=== PATIENT | female | born 1980 | race Caucasian/White ===

== ENCOUNTER → 2016-12-16 | Outpatient (CLI) | payer BC ==
--- NOTE | 2016-12-19 14:11 | MR ---
EXAM DATE: 12/16/16 PATIENT'S AGE: 36 Patient: GUMARO HERNANDEZ Facility: [place], [place] Site Site : [id number] Study: MRI Extremity Left Knee wo Aubrey [id number]/1/2017 10:48:38 AM Ordering Physician: ZAIN ROSALES MD Final Report: HISTORY: Knee pain. Technique: Routine knee protocol. Findings: Medial compartment: Medial meniscus: The medial meniscus is intact and unremarkable. Articular cartilage: The articular cartilage surfaces are smooth and normally maintained. Lateral compartment: Lateral meniscus: The lateral meniscus is intact and unremarkable. Articular cartilage: The articular cartilage surfaces are smooth normally maintained. Patellofemoral compartment: There is evidence for recent lateral patellar dislocation. There is an osteochondral fracture of the medial facet with a separate osteochondral fragment present as previously noted on plain film study of 12/13/2016. This measures approximately 6 mm in greatest dimension. There is an impaction osteochondral injury along the anterolateral aspect of the lateral femoral condyle with underlying marrow edema. The lateral facets articular cartilage appears normally maintained. There is a mildly hypoplastic appearance to the trochlear sulcus. Ligaments: The anterior cruciate, posterior cruciate, medial collateral and lateral collateral ligaments are intact. Extensor mechanism: The quadriceps and patellar tendons are intact. 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 In the extended nonweightbearing position there is mild lateral tilting and subluxation of the patella. There is tearing of the medial patellar retinaculum along the femoral origin. Bones and soft tissues: There is no evidence for fracture elsewhere. There is a more moderate knee joint effusion present with soft tissue edema present along the medial joint line. Impression: Evidence for recent lateral patellar dislocation with osteochondral fracture of the medial facet resulting in a separate, minimally displaced 6 mm osteochondral fragment. 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 Dictated by Vic Luevano MD @ Dec 19 2016 10:52AM (Electronic Signature) Report Signed by Proxy. ROBERT
== END | disposition home or self-care (01) ==
LOC: MW.MRI 08:12
PROVIDERS: ATTEND Orthopaedic Surgery
DX: M25.562 Pain in left knee (principal); S82.012A Displaced osteochondral fracture of left patella, initial encounter for closed fracture
CPT/HCPCS: 73721-26-LT; 73721-LT

== ENCOUNTER 2019-03-29 10:50 | Inpatient (IN) | payer BC ==
[2019-03-29] MEDS ORDERED: Water For Irrigation,Sterile 1,000 ML Container IRR PRN (12:47)
[2019-03-29] MEDS ORDERED: Sodium Chloride 0.9% 10 ML SDV IV PRN (12:47)
[2019-03-29] MEDS ORDERED: Carboprost Tromethamine 250 MCG/1 ML Amp IM PRN (12:47)
[2019-03-29] MEDS ORDERED: Tranexamic Acid 1,000 MG in Sodium Chloride 0.9% 100 ML IV PRN (12:47)
[2019-03-29] MEDS ORDERED: Sodium Chloride 0.9% 10 ML Syringe FLUSH PRN (12:47)
[2019-03-29] MEDS ORDERED: Lidocaine 1% 50 ML MDV INJECT PRN (12:47)
[2019-03-29] MEDS ORDERED: Sodium Chloride 0.9% 2.5 ML Syringe FLUSH PRN (12:47)
[2019-03-29] MEDS ORDERED: Butorphanol 1 MG/ML SDV IVPUSH PRN (12:47)
[2019-03-29] MEDS ORDERED: Misoprostol 200 MCG Tab PO PRN (12:47)
[2019-03-29] MEDS ORDERED: Ampicillin 2 GM in Sodium Chloride 0.9% 100 ML IV ONE (12:47)
[2019-03-29] MEDS ORDERED: Methylergonovine 0.2 MG/1 ML Amp IM PRN (12:47)
[2019-03-29] MEDS ORDERED: Oxytocin/0.9 % Sodium Chloride 30 UNIT/500 ML BAG IV SCH (13:00)
[2019-03-29] MEDS ORDERED: Misoprostol 50 MCG (1/2 of 100 MCG) Tab VAG SCH (13:00)
[2019-03-29] MEDS: Lactated Ringers 1,000 ML IV SCH (14:14)
[2019-03-29] MEDS: Misoprostol 25 MCG (1/4 of 100 MCG) Tab ONE ×2 (14:37→18:42)
[2019-03-29] MEDS: Ampicillin 1 GM in Sodium Chloride 0.9% 50 ML IV SCH ×2 (18:06→23:01)
[2019-03-29] MEDS ORDERED: Misoprostol 25 MCG (1/4 of 100 MCG) Tab ONE ×2 (18:33→23:17)
[2019-03-30] MEDS: Lactated Ringers 1,000 ML IV SCH (02:26)
[2019-03-30] MEDS ORDERED: Misoprostol 25 MCG (1/4 of 100 MCG) Tab ONE (03:37)
[2019-03-30] MEDS: Ampicillin 1 GM in Sodium Chloride 0.9% 50 ML IV SCH ×2 (03:46→08:10)
[2019-03-30] MEDS ORDERED: fentaNYL 100 MCG/2 ML SDV ONE (05:56)
[2019-03-30] MEDS ORDERED: ePHEDrine 50 MG/ML SDV ONE (06:16)
--- NOTE | 2019-03-30 06:28 | PCM.PREANE ---
Preanesthetic Assessment - Anesthesia/Transfusion/Family Hx Anesthesia History: Prior Anesthesia Without Reaction Family History of Anesthesia Reaction: No Transfusion History: No Prior Transfusion(s) Intubation History: Unknown - Review of Systems General: No Symptoms Pulmonary: No Symptoms Cardiovascular: No Symptoms Gastrointestinal: Abdominal Pain (labor pain) Neurological: No Symptoms Other: Reports: None - Physical Assessment Height: 5 ft 9 in Weight: 130.181 kg ASA Class: 2 Mental Status: Alert & Oriented x3 Airway Class: Mallampati = 2 Dentition: Reports: Normal Dentition Thyro-Mental Finger Breadths: 3 Mouth Opening Finger Breadths: 3 ROM/Head Extension: Full Lungs: Clear to Auscultation, Normal Respiratory Effort - Lab Values: Laboratory Last Values WBC 7.76 K/uL (4.0-11.0) 03/29/19 13:00 RBC 4.08 M/uL (4.30-5.90) L 03/29/19 13:00 Hgb 11.8 g/dL (12.0-16.0) L 03/29/19 13:00 Hct 35.7 % (36.0-46.0) L 03/29/19 13:00 MCV 87.5 fL (80.0-98.0) 03/29/19 13:00 MCH 28.9 pg (27.0-32.0) 03/29/19 13:00 MCHC 33.1 g/dL (31.0-37.0) 03/29/19 13:00 RDW Std Deviation 46.7 fl (28.0-62.0) 03/29/19 13:00 RDW Coeff of Kay 15 % (11.0-15.0) 03/29/19 13:00 Plt Count 190 K/uL (150-400) 03/29/19 13:00 MPV 11.60 fL (7.40-12.00) 03/29/19 13:00 Nucleated RBC % 0.0 /100WBC 03/29/19 13:00 Nucleated RBCs # 0 K/uL 03/29/19 13:00 Blood Type B POSITIVE 03/29/19 13:00 Antibody Screen NEGATIVE 03/29/19 13:00 - Allergies Allergies/Adverse Reactions: Allergies Allergy/AdvReac Type Severity Reaction Status Date / Time codeine Allergy Hives Verified 03/29/19 15:40 - Blood Blood Available: No - Anesthesia Plan Pre-Op Medication Ordered: None - Acknowledgements Anesthesia Type Planned: Epidural Pt an Appropriate Candidate for the Planned Anesthesia: Yes Alternatives and Risks of Anesthesia Discussed w Pt/Guardian: Yes Pt/Guardian Understands and Agrees with Anesthesia Plan: Yes PreAnesthesia Questionnaire - Past Health History Medical/Surgical History: Denies Medical/Surgical History HEENT History: Reports: None Cardiovascular History: Reports: None Respiratory History: Reports: None Gastrointestinal History: Reports: GERD Genitourinary History: Reports: None 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: Musculoskeletal History: Reports: None Neurological History: Reports: None Psychiatric History: Reports: None Endocrine/Metabolic History: Reports: Diabetes, Gestational, Obesity/BMI 30+ Hematologic History: Reports: None Immunologic History: Reports: None Oncologic (Cancer) History: Reports: None Dermatologic History: Reports: None - Infectious Disease History Infectious Disease History: Reports: Chicken Pox - Past Surgical History Endocrine Surgical History: Reports: None Musculoskeletal Surgical History: Reports: Other (See Below) Other Musculoskeletal Surgeries/Procedures:: Surgical repair of patella and "tightened the joint" via the hamstring. - SUBSTANCE USE Smoking Status *Q: Never Smoker Tobacco Use Within Last Twelve Months: No Second Hand Smoke Exposure: No Recreational Drug Use History: No - HOME MEDS Home Medications: Home Meds PNV95/Ferrous Fumarate/FA [ Vitamin Tablet] 1 each PO DAILY 03/29/19 [ History] - CURRENT (IN HOUSE) MEDS Current Meds: Current Medications Butorphanol Tartrate (Stadol) 1 mg IVPUSH Q1H PRN PRN Reason: Pain Carboprost Tromethamine (Hemabate Ds) 250 mcg IM ASDIRECTED PRN PRN Reason: Post Hemorrhage Ampicillin Sodium 1 gm/ Sodium (Chloride) 50 mls @ 100 mls/hr IV Q4H [facility] Last Admin: 03/30/19 03:46 Dose: 100 mls/hr Lactated Ringer's (Ringers, Lactated) 1,000 mls @ 150 mls/hr IV ASDIRECTED [facility] Last Admin: 03/30/19 02:26 Dose: 150 mls/hr Oxytocin/Sodium Chloride (Oxytocin 30 Unit/500 Ml-Ns) 30 unit in 500 mls @ 999 mls/hr IV TITRATE [facility] Tranexamic Acid 1,000 mg/ (Sodium Chloride) 110 mls @ 660 mls/hr IV ONETIME PRN PRN Reason: Bleeding Lidocaine HCl (Xylocaine 1%) 50 ml INJECT ONETIME PRN PRN Reason: Laceration repair Methylergonovine Maleate (Methergine) 0.2 mg IM ASDIRECTED PRN PRN Reason: Post Hemorrhage Misoprostol (Cytotec) 200 mcg PO ONETIME PRN PRN Reason: Post Hemorrhage Misoprostol (Cytotec) 25 mcg VAG Q4H [facility] Last Admin: 03/29/19 23:39 Dose: 25 mcg Sodium Chloride (Saline Flush) 10 ml FLUSH ASDIRECTED PRN PRN Reason: Keep Vein Open Sodium Chloride (Saline Flush) 2.5 ml FLUSH ASDIRECTED PRN PRN Reason: Keep Vein Open Sodium Chloride (Normal Saline) 10 ml IV ASDIRECTED PRN PRN Reason: IV Use Sterile Water (Sterile Water For Irrigation) 1,000 ml IRR ASDIRECTED PRN PRN Reason: delivery Discontinued Medications Ephedrine Sulfate (Ephedrine Sulfate) Confirm Administered Dose 50 mg .ROUTE .STK-MED ONE Stop: 03/30/19 06:17 Fentanyl (Sublimaze) Confirm Administered Dose 100 mcg .ROUTE .STK-MED ONE Stop: 03/30/19 05:57 Ampicillin Sodium 2 gm/ Sodium (Chloride) 100 mls @ 200 mls/hr IV ONETIME ONE Stop: 03/29/19 13:16 Last Admin: 03/29/19 14:15 Dose: 200 mls/hr Fentanyl/Bupivacaine HCl (Sknyiivq-Ismia-Se 2 Mcg/Ml-0.125%) Confirm Administered Dose 100 mls @ as directed .ROUTE .STK-MED ONE Stop: 03/30/19 05:57 Misoprostol (Cytotec) Confirm Administered Dose 25 mcg .ROUTE .STK-MED ONE Stop: 03/29/19 14:29 Last Admin: 03/29/19 18:42 Dose: 25 mcg Misoprostol (Cytotec) Confirm Administered Dose 25 mcg .ROUTE .STK-MED ONE Stop: 03/29/19 18:34 Misoprostol (Cytotec) Confirm Administered Dose 25 mcg .ROUTE .STK-MED ONE Stop: 03/29/19 23:18 Misoprostol (Cytotec) Confirm Administered Dose 25 mcg .ROUTE .STK-MED ONE Stop: 03/30/19 03:38
[2019-03-30] MEDS ORDERED: Terbutaline 1 MG/ML SDV SUBCUT PRN (09:24)
[2019-03-30] MEDS ORDERED: Simethicone 80 MG Tab.Chew PO PRN (11:23)
[2019-03-30] MEDS ORDERED: Lanolin 100% Cream 7 GM Tube TOP PRN (11:23)
[2019-03-30] MEDS ORDERED: Acetaminophen 500 MG Tab PO PRN ×2 (11:23)
[2019-03-30] MEDS ORDERED: diphenhydrAMINE 50 MG Cap PO PRN (11:23)
[2019-03-30] MEDS ORDERED: Bisacodyl 10 MG Supp RECTAL PRN (11:23)
[2019-03-30] MEDS ORDERED: Docusate Sodium 100 MG Cap PO PRN (11:23)
[2019-03-30] MEDS ORDERED: Hydrocortisone 2.5% Crm 30 GM Tube TOP PRN (11:23)
[2019-03-30] MEDS ORDERED: Aluminum Hydroxide/Magnesium Hydroxide/Simethicone Susp 30 ML Cup PO PRN (11:23)
[2019-03-30] MEDS ORDERED: Witch Hazel Medicated Pads 40/Jar TOP PRN (11:23)
[2019-03-30] MEDS ORDERED: Famotidine 20 MG Tab PO PRN (11:23)
[2019-03-30] MEDS ORDERED: oxyCODONE 5 MG Tab PO PRN (11:23)
[2019-03-30] MEDS ORDERED: Ondansetron 4 MG/2 ML SDV IVPUSH PRN (11:23)
[2019-03-30] MEDS ORDERED: Benzocaine/Menthol 20%-0.5% Spray 78 GM Cannister TOP PRN (11:23)
--- NOTE | 2019-03-30 11:27 | PCM.OPNOTE ---
<Bettina Barrientos - Last Filed: 03/30/19 11:23> - General Post-Op/Procedure Note Date of Surgery/Procedure: 03/30/19 Operative Procedure(s): Spontaneous vaginal delivery. Repair of 2nd degree perineal laceration Findings: Vaginal delivery if liveborn male . Apgars 8 and 9. Weight pending. 3VC. Placenta intact. Pre Op Diagnosis: 39/3 Induction for term gestation. 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
--- NOTE | 2019-03-30 13:43 | PCM48HPAN ---
Post Anesthesia Note - EVALUATION WITHIN 48HRS OF ANESTHETIC Vital Signs in Normal Range: Yes Patient Participated in Evaluation: Yes Respiratory Function Stable: Yes Airway Patent: Yes Cardiovascular Function Stable: Yes Hydration Status Stable: Yes Pain Control Satisfactory: Yes Nausea and Vomiting Control Satisfactory: Yes Mental Status Recovered: Yes - COMMENTS/OBSERVATIONS Free Text/Narrative:: patient comfortable at tthis time. no signs or symptoms of anesthesia related problems.
--- NOTE | 2019-03-30 14:31 | OR ---
SURGEON: Lana Sanchez MD DATE OF PROCEDURE: 03/30/2019 OPERATIVE PROCEDURE: 1. Spontaneous vaginal delivery. 2. Repair of second-degree perineal laceration. PREOPERATIVE DIAGNOSES: 1. A 38-year-old, 2 para 1, at 39 weeks and 4 days gestation being elective induced. 2. Group B Strep positive. POSTOPERATIVE DIAGNOSES: 1. A 38-year-old, 2 para 1, at 39 weeks and 4 days gestation being elective induced. 2. Group B Strep positive. FINDINGS: Live male infant in cephalic presentation. score of 8 and 9 at 1 and 5 minutes, respectively. Weight pending. Placenta intact with 3-vessel cord. ANESTHESIA: Epidural. PRIMARY SURGEON: Lana Sanchez MD. THERAPEUTIC CASE MANAGER: Bettina Barrientos, medical student. ESTIMATED BLOOD LOSS: 350 mL. COMPLICATIONS: Nuchal cord x1. DESCRIPTION OF PROCEDURE: The patient progressed to complete cervical dilation with epidural in place. She pushed to spontaneous vaginal delivery of a live male infant. score 8 and 9 at 1 and 5 minutes, respectively, weight pending. Head was delivered, followed by the shoulders and the remainder of body. A nuchal cord x1 was reduced after the delivery of the body. The infant was placed on the maternal abdomen. After 1 minute of delayed cord clamping, the cord was clamped and cut. The placenta was delivered intact and with 3-cord via the Burch-Pascual maneuver. The vagina and perineum were inspected. A second-degree and bilateral labial lacerations were noted. The second-degree laceration and the left labial laceration were repaired with 2-0 Vicryl to anatomy and hemostasis. The right labial laceration was hemostatic without repair. The fundus was firm below the umbilicus with minimal bleeding. The patient and the infant tolerated the delivery well. [id number] / MODL /[id number]
[2019-03-30] MEDS: Ibuprofen 800 MG Tab PO PRN (16:52)
[2019-03-31] MEDS: Ibuprofen 800 MG Tab PO PRN ×2 (01:31→10:59)
[2019-03-31 05:06] VITALS: BP 117/64; PULSE 56
[2019-03-31] MEDS: Iron Polysaccharides Complex 150 MG Cap PO SCH ×2 (07:29→08:10)
--- NOTE | 2019-03-31 09:30 | PCM.PNPP ---
<Bettina Barrientos - Last Filed: 03/31/19 09:27> - General Info Date of Service: 03/31/19 Functional Status: Reports: Pain Controlled - Review of Systems General: Reports: No Symptoms. Denies: Fever, Fatigue HEENT: Reports: No Symptoms. Denies: Headaches Pulmonary: Reports: No Symptoms. Denies: Shortness of Breath Cardiovascular: Reports: No Symptoms. Denies: Chest Pain, Palpitations Gastrointestinal: Reports: Abdominal Pain (mild cramping ) Genitourinary: Reports: No Symptoms Musculoskeletal: Reports: No Symptoms Skin: Reports: No Symptoms Neurological: Reports: No Symptoms Psychiatric: Reports: No Symptoms - General Info Date of Service: 03/31/19 - Patient Data Vital Signs - Most Recent: Last Vital Signs Temp 98.1 F 03/31/19 04:25 Pulse 56 L 03/31/19 04:25 Resp 17 03/31/19 04:25 BP 117/64 03/31/19 04:25 Pulse Ox 99 03/31/19 04:25 Weight - Most Recent: 130.181 kg Lab Results - Last 24 Hours: Laboratory Results - last 24 hr 03/31/19 Range/Units 05:47 Hgb 10.3 L (12.0-16.0) g/dL Hct 31.3 L (36.0-46.0) % Med Orders - Current: Current Medications Acetaminophen (Tylenol Extra Strength) 500 mg PO Q4H PRN PRN Reason: Pain Acetaminophen (Tylenol Extra Strength) 1,000 mg PO Q6H PRN PRN Reason: Pain Al Hydroxide/Mg Hydroxide (Mag-Al Plus) 30 ml PO Q8H PRN PRN Reason: Heartburn Benzocaine/Menthol (Dermoplast Pain Relief 20%-0.5% [place]) 78 gm TOP ASDIRECTED PRN PRN Reason: Perineal Comfort Measure Bisacodyl (Dulcolax) 10 mg RECTAL ONETIME PRN PRN Reason: Constipation Butorphanol Tartrate (Stadol) 1 mg IVPUSH Q1H PRN PRN Reason: Pain Carboprost Tromethamine (Hemabate Ds) 250 mcg IM ASDIRECTED PRN PRN Reason: Post Hemorrhage Diphenhydramine HCl (Benadryl) 50 mg PO BEDTIME PRN PRN Reason: Insomnia Docusate Sodium (Colace) 100 mg PO BID PRN PRN Reason: Constipation Last Admin: 03/31/19 08:10 Dose: 100 mg Emollient Ointment (Lansinoh Hpa) 0 gm TOP ASDIRECTED PRN PRN Reason: Sore Nipples Famotidine (Pepcid) 20 mg PO BID PRN PRN Reason: Heartburn Hydrocortisone (Proctozone-Hc 2.5% Crm) 1 gm TOP 6XDAY PRN PRN Reason: Itching Lactated Ringer's (Ringers, Lactated) 1,000 mls @ 150 mls/hr IV ASDIRECTED [facility] Last Admin: 03/30/19 02:26 Dose: 150 mls/hr Oxytocin/Sodium Chloride (Oxytocin 30 Unit/500 Ml-Ns) 30 unit in 500 mls @ 999 mls/hr IV TITRATE [facility] Last Admin: 03/30/19 10:55 Dose: 999 mls/hr Tranexamic Acid 1,000 mg/ (Sodium Chloride) 110 mls @ 660 mls/hr IV ONETIME PRN PRN Reason: Bleeding Ibuprofen (Motrin) 800 mg PO Q8H PRN PRN Reason: Pain Last Admin: 03/31/19 01:31 Dose: 800 mg Lidocaine HCl (Xylocaine 1%) 50 ml INJECT ONETIME PRN PRN Reason: Laceration repair Methylergonovine Maleate (Methergine) 0.2 mg IM ASDIRECTED PRN PRN Reason: Post Hemorrhage Misoprostol (Cytotec) 200 mcg PO ONETIME PRN PRN Reason: Post Hemorrhage Ondansetron HCl (Zofran) 4 mg IVPUSH Q6H PRN PRN Reason: Nausea/Vomiting Oxycodone HCl (Oxycodone) 5 mg PO Q4H PRN PRN Reason: Pain Last Admin: 03/30/19 19:45 Dose: 5 mg Polysaccharide Iron Complex (Ferrex 150) 150 mg PO DAILY [facility] Last Admin: 03/31/19 08:10 Dose: 150 mg Simethicone (Simethicone) 80 mg PO Q4H PRN PRN Reason: Gas Sodium Chloride (Saline Flush) 10 ml FLUSH ASDIRECTED PRN PRN Reason: Keep Vein Open Sodium Chloride (Saline Flush) 2.5 ml FLUSH ASDIRECTED PRN PRN Reason: Keep Vein Open Sodium Chloride (Normal Saline) 10 ml IV ASDIRECTED PRN PRN Reason: IV Use Sterile Water (Sterile Water For Irrigation) 1,000 ml IRR ASDIRECTED PRN PRN Reason: delivery Last Admin: 03/30/19 11:01 Dose: 1,000 ml Terbutaline Sulfate (Brethine) 0.25 mg SUBCUT ASDIRECTED PRN PRN Reason: Tacysystole Witch Karyna (Tucks) 1 pad TOP ASDIRECTED PRN PRN Reason: comfort care Last Admin: 03/30/19 19:47 Dose: 1 tub Discontinued Medications Ephedrine Sulfate (Ephedrine Sulfate) Confirm Administered Dose 50 mg .ROUTE .STK-MED ONE Stop: 03/30/19 06:17 Last Admin: 03/31/19 07:29 Dose: Not Given Fentanyl (Sublimaze) Confirm Administered Dose 100 mcg .ROUTE .STK-MED ONE Stop: 03/30/19 05:57 Last Admin: 03/31/19 07:29 Dose: Not Given Ampicillin Sodium 2 gm/ Sodium (Chloride) 100 mls @ 200 mls/hr IV ONETIME ONE Stop: 03/29/19 13:16 Last Admin: 03/29/19 14:15 Dose: 200 mls/hr Ampicillin Sodium 1 gm/ Sodium (Chloride) 50 mls @ 100 mls/hr IV Q4H [facility] Last Admin: 03/30/19 08:10 Dose: 100 mls/hr Fentanyl/Bupivacaine HCl (Pqkgsptp-Nsipm-Gx 2 Mcg/Ml-0.125%) Confirm Administered Dose 100 mls @ as directed .ROUTE .STK-MED ONE Stop: 03/30/19 05:57 Last Admin: 03/31/19 07:29 Dose: Not Given Misoprostol (Cytotec) 25 mcg VAG Q4H [facility] Last Admin: 03/29/19 23:39 Dose: 25 mcg Misoprostol (Cytotec) Confirm Administered Dose 25 mcg .ROUTE .STK-MED ONE Stop: 03/29/19 14:29 Last Admin: 03/29/19 18:42 Dose: 25 mcg Misoprostol (Cytotec) Confirm Administered Dose 25 mcg .ROUTE .STK-MED ONE Stop: 03/29/19 18:34 Misoprostol (Cytotec) Confirm Administered Dose 25 mcg .ROUTE .STK-MED ONE Stop: 03/29/19 23:18 Misoprostol (Cytotec) Confirm Administered Dose 25 mcg .ROUTE .STK-MED ONE Stop: 03/30/19 03:38 Last Admin: 03/31/19 07:29 Dose: Not Given - Interaction Infant Disposition, : [place] in Room with Family Infant Interaction: Holding Feeding: Attempted ; Nursed Fair/Poor Support Person: - Recovery Exam Fundal Tone: Firm Fundal Level: 1 Fingerbreadths Below Umbilicus Fundal Placement: Midline Lochia Amount: Scant Lochia Color: Rubra/Red Perineum Description: Other (see below) Other Perinuem Description: 2 degree perineal, bilateral labial laceration Episiotomy/Laceration: Approximated Bladder Status: Voiding Urinary Elimination: Voided - Exam General: Alert, Oriented HEENT: Pupils Equal Neck: Supple Lungs: Clear to Auscultation, Normal Respiratory Effort Cardiovascular: Regular Rate, Regular Rhythm GI/Abdominal Exam: Normal Bowel Sounds, Soft, Non-Tender, No Organomegaly, No Distention, No Abnormal Bruit, No Mass, Pelvis Stable Extremities: Normal Inspection, Normal Range of Motion, Non-Tender, No Pedal Edema, Normal Capillary Refill Skin: Warm, Dry, Intact Neurological: No New Focal Deficit Psy/Mental Status: Alert, Normal Affect, Normal Mood - Problem List & Annotations (1) Vaginal delivery SNOMED Code(s): 478993984 Code(s): O80 - ENCOUNTER FOR FULL-TERM UNCOMPLICATED DELIVERY Status: Acute - Problem List Review Problem List Initiated/Reviewed/Updated: Yes - Assessment Assessment:: PPD1 for AMA, received GBS prophylaxis fair Pain well controlled - Plan Plan:: Regular diet Pain control PRN Routine care May discharge home today or tomorrow <Lana Sanchez - Last Filed: 03/31/19 10:39> - General Info Functional Status: Reports: Tolerating Diet, Ambulating, Urinating - Patient Data Vital Signs - Most Recent: Last Vital Signs Temp 36.7 C 03/31/19 04:25 Pulse 56 L 03/31/19 04:25 Resp 17 03/31/19 04:25 BP 117/64 03/31/19 04:25 Pulse Ox 99 03/31/19 04:25 Lab Results - Last 24 Hours: Laboratory Results - last 24 hr 03/31/19 Range/Units 05:47 Hgb 10.3 L (12.0-16.0) g/dL Hct 31.3 L (36.0-46.0) % Med Orders - Current: Current Medications Acetaminophen (Tylenol Extra Strength) 500 mg PO Q4H PRN PRN Reason: Pain Acetaminophen (Tylenol Extra Strength) 1,000 mg PO Q6H PRN PRN Reason: Pain Al Hydroxide/Mg Hydroxide (Mag-Al Plus) 30 ml PO Q8H PRN PRN Reason: Heartburn Benzocaine/Menthol (Dermoplast Pain Relief 20%-0.5% [place]) 78 gm TOP ASDIRECTED PRN PRN Reason: Perineal Comfort Measure Bisacodyl (Dulcolax) 10 mg RECTAL ONETIME PRN PRN Reason: Constipation Butorphanol Tartrate (Stadol) 1 mg IVPUSH Q1H PRN PRN Reason: Pain Carboprost Tromethamine (Hemabate Ds) 250 mcg IM ASDIRECTED PRN PRN Reason: Post Hemorrhage Diphenhydramine HCl (Benadryl) 50 mg PO BEDTIME PRN PRN Reason: Insomnia Docusate Sodium (Colace) 100 mg PO BID PRN PRN Reason: Constipation Last Admin: 03/31/19 08:10 Dose: 100 mg Emollient Ointment (Lansinoh Hpa) 0 gm TOP ASDIRECTED PRN PRN Reason: Sore Nipples Famotidine (Pepcid) 20 mg PO BID PRN PRN Reason: Heartburn Hydrocortisone (Proctozone-Hc 2.5% Crm) 1 gm TOP 6XDAY PRN PRN Reason: Itching Lactated Ringer's (Ringers, Lactated) 1,000 mls @ 150 mls/hr IV ASDIRECTED [facility] Last Admin: 03/30/19 02:26 Dose: 150 mls/hr Oxytocin/Sodium Chloride (Oxytocin 30 Unit/500 Ml-Ns) 30 unit in 500 mls @ 999 mls/hr IV TITRATE [facility] Last Admin: 03/30/19 10:55 Dose: 999 mls/hr Tranexamic Acid 1,000 mg/ (Sodium Chloride) 110 mls @ 660 mls/hr IV ONETIME PRN PRN Reason: Bleeding Ibuprofen (Motrin) 800 mg PO Q8H PRN PRN Reason: Pain Last Admin: 03/31/19 01:31 Dose: 800 mg Lidocaine HCl (Xylocaine 1%) 50 ml INJECT ONETIME PRN PRN Reason: Laceration repair Methylergonovine Maleate (Methergine) 0.2 mg IM ASDIRECTED PRN PRN Reason: Post Hemorrhage Misoprostol (Cytotec) 200 mcg PO ONETIME PRN PRN Reason: Post Hemorrhage Ondansetron HCl (Zofran) 4 mg IVPUSH Q6H PRN PRN Reason: Nausea/Vomiting Oxycodone HCl (Oxycodone) 5 mg PO Q4H PRN PRN Reason: Pain Last Admin: 03/30/19 19:45 Dose: 5 mg Polysaccharide Iron Complex (Ferrex 150) 150 mg PO DAILY [facility] Last Admin: 03/31/19 08:10 Dose: 150 mg Simethicone (Simethicone) 80 mg PO Q4H PRN PRN Reason: Gas Sodium Chloride (Saline Flush) 10 ml FLUSH ASDIRECTED PRN PRN Reason: Keep Vein Open Sodium Chloride (Saline Flush) 2.5 ml FLUSH ASDIRECTED PRN PRN Reason: Keep Vein Open Sodium Chloride (Normal Saline) 10 ml IV ASDIRECTED PRN PRN Reason: IV Use Sterile Water (Sterile Water For Irrigation) 1,000 ml IRR ASDIRECTED PRN PRN Reason: delivery Last Admin: 03/30/19 11:01 Dose: 1,000 ml Terbutaline Sulfate (Brethine) 0.25 mg SUBCUT ASDIRECTED PRN PRN Reason: Tacysystole [place] (Tucks) 1 pad TOP ASDIRECTED PRN PRN Reason: comfort care Last Admin: 03/30/19 19:47 Dose: 1 tub Discontinued Medications Ephedrine Sulfate (Ephedrine Sulfate) Confirm Administered Dose 50 mg .ROUTE .STK-MED ONE Stop: 03/30/19 06:17 Last Admin: 03/31/19 07:29 Dose: Not Given Fentanyl (Sublimaze) Confirm Administered Dose 100 mcg .ROUTE .STK-MED ONE Stop: 03/30/19 05:57 Last Admin: 03/31/19 07:29 Dose: Not Given Ampicillin Sodium 2 gm/ Sodium (Chloride) 100 mls @ 200 mls/hr IV ONETIME ONE Stop: 03/29/19 13:16 Last Admin: 03/29/19 14:15 Dose: 200 mls/hr Ampicillin Sodium 1 gm/ Sodium (Chloride) 50 mls @ 100 mls/hr IV Q4H [facility] Last Admin: 03/30/19 08:10 Dose: 100 mls/hr Fentanyl/Bupivacaine HCl (Ozggkbhu-Lvqyt-Nk 2 Mcg/Ml-0.125%) Confirm Administered Dose 100 mls @ as directed .ROUTE .STK-MED ONE Stop: 03/30/19 05:57 Last Admin: 03/31/19 07:29 Dose: Not Given Misoprostol (Cytotec) 25 mcg VAG Q4H [facility] Last Admin: 03/29/19 23:39 Dose: 25 mcg Misoprostol (Cytotec) Confirm Administered Dose 25 mcg .ROUTE .STK-MED ONE Stop: 03/29/19 14:29 Last Admin: 03/29/19 18:42 Dose: 25 mcg Misoprostol (Cytotec) Confirm Administered Dose 25 mcg .ROUTE .STK-MED ONE Stop: 03/29/19 18:34 Misoprostol (Cytotec) Confirm Administered Dose 25 mcg .ROUTE .STK-MED ONE Stop: 03/29/19 23:18 Misoprostol (Cytotec) Confirm Administered Dose 25 mcg .ROUTE .STK-MED ONE Stop: 03/30/19 03:38 Last Admin: 03/31/19 07:29 Dose: Not Given - Problem List & Annotations (1) Vaginal delivery SNOMED Code(s): 625284443 Code(s): O80 - ENCOUNTER FOR FULL-TERM UNCOMPLICATED DELIVERY Status: Acute - My Orders Last 24 Hours: My Active Orders 03/30/19 11:23 Acetaminophen [Tylenol Extra Strength] 1,000 mg PO Q6H PRN Acetaminophen [Tylenol Extra Strength] 500 mg PO Q4H PRN Alum Hydrox/Mag Hydrox/Simeth [Mag-Al Plus] 30 ml PO Q8H PRN Benzocaine/Menthol [Dermoplast Pain Relief 20%-0.5% [place]] 78 gm TOP ASDIRECTED PRN Bisacodyl [Dulcolax] 10 mg RECTAL ONETIME PRN Docusate Sodium [Colace] 100 mg PO BID PRN Famotidine [Pepcid] 20 mg PO BID PRN Hydrocortisone [Proctozone-HC 2.5% Crm] 1 gm TOP 6XDAY PRN Ibuprofen [Motrin] 800 mg PO Q8H PRN Lanolin [Lansinoh HPA] See Dose Instructions TOP ASDIRECTED PRN Ondansetron [Zofran] 4 mg IVPUSH Q6H PRN Simethicone 80 mg PO Q4H PRN Witch Karyna [Tucks] 1 pad TOP ASDIRECTED PRN diphenhydrAMINE [Benadryl] 50 mg PO BEDTIME PRN oxyCODONE 5 mg PO Q4H PRN 03/30/19 11:24 Patient Status [ADT] Routine May Shower [RC] ASDIRECTED Up ad Pam [RC] ASDIRECTED Vital Signs [RC] PER UNIT ROUTINE Assess Lochia [WOMSER] Per Unit Routine Assess Uterine Involution [WOMSER] Per Unit Routine Peripheral IV Discontinue [OM.PC] Routine 03/30/19 11:26 Ice Therapy [OM.PC] Per Unit Routine Perineal Care [OM.PC] Per Unit Routine Sitz Bath [OM.PC] Per Unit Routine 03/30/19 11:30 Iron Polysaccharides Complex [Ferrex 150] 150 mg PO DAILY 03/30/19 Lunch Regular Diet [DIET] 03/31/19 00:01 Ready for Discharge [RC] PER UNIT ROUTINE - Plan Plan:: I have seen and examined the patient and agree with the above. Stable for discharge home at 24 hours .
== END 2019-03-31 12:00 | disposition home or self-care (01) | DRG 560 ==
LOC: MW.OB 10:50 → OBSVTOIN 03-30 10:50 → MW.OB 03-30 16:30
PROVIDERS: ADMIT Obstetrics & Gynecology; ATTEND Obstetrics & Gynecology
PROC: 10E0XZZ Delivery of Products of Conception, External Approach (ICD-10-PCS; principal; 2019-03-30)
PROC: 3E0P7VZ Introduction of Hormone into Female Reproductive, Via Natural or Artificial Opening (ICD-10-PCS; 2019-03-30)
PROC: 4A1HXCZ Monitoring of Products of Conception, Cardiac Rate, External Approach (ICD-10-PCS; 2019-03-30)
PROC: 3E033VJ Introduction of Other Hormone into Peripheral Vein, Percutaneous Approach (ICD-10-PCS; 2019-03-30)
PROC: 10H07YZ Insertion of Other Device into Products of Conception, Via Natural or Artificial Opening (ICD-10-PCS; 2019-03-30)
PROC: 0KQM0ZZ Repair Perineum Muscle, Open Approach (ICD-10-PCS; 2019-03-30)
DX: O99.824 Streptococcus B carrier state complicating childbirth (principal); E66.9 Obesity, unspecified; O99.214 Obesity complicating childbirth; O70.1 Second degree perineal laceration during delivery; O76 Abnormality in fetal heart rate and rhythm complicating labor and delivery; O69.81X0 Labor and delivery complicated by cord around neck, without compression, not applicable or unspecified; Z3A.39 39 weeks gestation of pregnancy; Z37.0 Single live birth
CPT/HCPCS: 01967; 36415; 51702; 59025; 59409; 85014; 85018; 85027; 86850; 86900; 86901; A9270-GY; J0290; J2590; J7030; J7050; J7120